=== PATIENT | female | born 1990 | race Two or more races ===

== ENCOUNTER → 2019-04-25 | Outpatient (CLI) | payer OTHER | END | disposition home or self-care (01) | LOC: PRENATAL 04-18 10:00 | DX: O35.3XX1 Maternal care for (suspected) damage to fetus from viral disease in mother, fetus 1 (principal); O99.212 Obesity complicating pregnancy, second trimester ==

== ENCOUNTER → 2019-05-23 | Outpatient (CLI) | payer OTHER | END | disposition home or self-care (01) | LOC: PRENATAL 08:00 | DX: O35.0XX1 Maternal care for (suspected) central nervous system malformation in fetus, fetus 1 (principal); O99.212 Obesity complicating pregnancy, second trimester; O26.842 Uterine size-date discrepancy, second trimester; Z36.89 Encounter for other specified antenatal screening ==

== ENCOUNTER → 2019-07-11 | Outpatient (CLI) | payer OTHER | END | disposition home or self-care (01) | LOC: PRENATAL 08:30 | PROVIDERS: ATTEND Obstetrics & Gynecology Maternal & Fetal Medicine | DX: O26.843 Uterine size-date discrepancy, third trimester (principal); O36.8131 Decreased fetal movements, third trimester, fetus 1; O99.213 Obesity complicating pregnancy, third trimester; Z36.89 Encounter for other specified antenatal screening ==

== ENCOUNTER 2019-08-13 12:22 | Inpatient (IN) | payer OTHER ==
[~2019-08-13] VITALS: Ht 165.1 cm; Wt 104.8 kg
[2019-09-01] MEDS ORDERED: PRENATAL CAPLE1 EAC1 PO (16:57)
== END 2019-09-05 16:05 | disposition home or self-care (01) | DRG 807 ==
LOC: OB/GYN 08-29 12:30 → SURG-SUITE 09-01 07:29 → LDR 09-01 07:29 → SURG-SUITE 09-02 07:55
PROVIDERS: ADMIT Obstetrics & Gynecology; ATTEND Obstetrics & Gynecology
PROC: 10E0XZZ Delivery of Products of Conception, External Approach (ICD-10-PCS; principal; 2019-09-02)
PROC: 0KQM0ZZ Repair Perineum Muscle, Open Approach (ICD-10-PCS; 2019-09-02)
PROC: 4A1HXFZ Monitoring of Products of Conception, Cardiac Rhythm, External Approach (ICD-10-PCS; 2019-09-02)
PROC: 3E0P7VZ Introduction of Hormone into Female Reproductive, Via Natural or Artificial Opening (ICD-10-PCS; 2019-09-02)
DX: O70.1 Second degree perineal laceration during delivery (principal); Z37.0 Single live birth; Z3A.39 39 weeks gestation of pregnancy; O90.81 Anemia of the puerperium

== ENCOUNTER 2020-07-02 14:47 | Emergency (ER) | payer OTHER ==
[~2020-07-02] VITALS: Ht 162.6 cm; Wt 99.8 kg
[~2020-07-02 14:47] MED LIST: PRENATAL CAPLE1 EAC1 PO
== END 2020-07-02 22:19 | disposition home or self-care (01) ==
LOC: ER 14:47
DX: O26.892 Other specified pregnancy related conditions, second trimester (principal); R51.9 Headache, unspecified; Z34.82 Encounter for supervision of other normal pregnancy, second trimester; Z11.52 Encounter for screening for COVID-19

== ENCOUNTER → 2020-07-15 | Outpatient (CLI) | payer OTHER | END | disposition home or self-care (01) | LOC: PRENATAL 14:00 | PROVIDERS: ATTEND Obstetrics & Gynecology Maternal & Fetal Medicine | DX: O35.0XX1 Maternal care for (suspected) central nervous system malformation in fetus, fetus 1 (principal); O35.3XX1 Maternal care for (suspected) damage to fetus from viral disease in mother, fetus 1; O98.512 Other viral diseases complicating pregnancy, second trimester; O99.212 Obesity complicating pregnancy, second trimester; Z36.89 Encounter for other specified antenatal screening; Z3A.20 20 weeks gestation of pregnancy ==

== ENCOUNTER 2020-09-16 12:54 | Outpatient (CLI) | payer OTHER | END 2020-09-16 14:00 | disposition home or self-care (01) | LOC: PRENATAL 12:54 | PROVIDERS: ATTEND Obstetrics & Gynecology Maternal & Fetal Medicine | DX: O26.843 Uterine size-date discrepancy, third trimester (principal); O99.213 Obesity complicating pregnancy, third trimester; Z36.89 Encounter for other specified antenatal screening; Z3A.28 28 weeks gestation of pregnancy ==

== ENCOUNTER 2020-11-18 14:45 | Inpatient (IN) | payer OTHER ==
[~2020-11-18] VITALS: Ht 162.6 cm; Wt 108.0 kg
[2020-11-26] MEDS ORDERED: PROBIOTIC1 EAC2 PO (17:32)
[2020-11-26] MEDS ORDERED: IRON236 MG PO (17:32)
[2020-11-29] MEDS ORDERED: FUSION PLUS CA1 EACH PO (18:10)
== END 2020-11-29 18:54 | disposition home or self-care (01) | DRG 807 ==
LOC: LDR 11-26 16:32 → SURG-SUITE 11-27 16:48 → OB/GYN 12-05 14:45
PROVIDERS: ADMIT Obstetrics & Gynecology; ATTEND Obstetrics & Gynecology
PROC: 3E0P7VZ Introduction of Hormone into Female Reproductive, Via Natural or Artificial Opening (ICD-10-PCS; 2020-11-26)
PROC: 4A1HXFZ Monitoring of Products of Conception, Cardiac Rhythm, External Approach (ICD-10-PCS; 2020-11-26)
PROC: 10E0XZZ Delivery of Products of Conception, External Approach (ICD-10-PCS; principal; 2020-11-27)
PROC: 0KQM0ZZ Repair Perineum Muscle, Open Approach (ICD-10-PCS; 2020-11-27)
PROC: 10907ZC Drainage of Amniotic Fluid, Therapeutic from Products of Conception, Via Natural or Artificial Opening (ICD-10-PCS; 2020-11-27)
PROC: 3E033VJ Introduction of Other Hormone into Peripheral Vein, Percutaneous Approach (ICD-10-PCS; 2020-11-27)
DX: O41.03X0 Oligohydramnios, third trimester, not applicable or unspecified (principal); O70.1 Second degree perineal laceration during delivery; Z37.0 Single live birth; Z3A.38 38 weeks gestation of pregnancy

== ENCOUNTER 2021-08-24 11:06 | Emergency (ER) | payer OTHER ==
[~2021-08-24] VITALS: Ht 165.1 cm; Wt 99.8 kg
[~2021-08-24 11:06] MED LIST changes: +FUSION PLUS CA1 EACH PO; +IRON236 MG PO; +PROBIOTIC1 EAC2 PO
== END 2021-08-24 13:38 | disposition home or self-care (01) ==
LOC: ER 11:06 → EMR PED 11:06 → ER 12:06
DX: U07.1 COVID-19 (principal); Z91.013 Allergy to seafood

== ENCOUNTER 2021-08-26 08:30 | Outpatient (CLI) | payer OTHER | END 2021-08-26 09:00 | disposition home or self-care (01) | LOC: ASH CLINIC 08:30 | PROVIDERS: ATTEND General Practice | DX: U07.1 COVID-19 (principal) ==

== ENCOUNTER 2022-09-05 10:35 | Emergency (ER) | payer OTHER ==
[~2022-09-05] VITALS: Ht 165.1 cm; Wt 92.5 kg
== END 2022-09-05 17:46 | disposition home or self-care (01) ==
LOC: ER 10:35
DX: J06.9 Acute upper respiratory infection, unspecified (principal); Z20.822 Contact with and (suspected) exposure to COVID-19